=== PATIENT | male | born 1950 | race Caucasian/White ===

== ENCOUNTER 2020-06-14 10:03 | Emergency (ER) | payer MEDICARE, OTHER ==
[2020-06-14 12:59] LABS: HEMOGLOBIN 16.3 gm/dl (14.0-17.5); RED BLOOD COUNT 5.44 M/UL (4.20-5.50); WHITE BLOOD COUNT 6.7 K/UL (4.5-11.0)
[2020-06-14 13:31] LABS: BUN/CREATININE RATIO 14 (0-10)
[2020-06-14] MEDS ORDERED: TESSALON PERLE100 MG PO (15:30)
[2020-06-14] MEDS ORDERED: ZOFRAN ODT 4 MG4 MG PO (15:30)
[2020-06-14] MEDS ORDERED: CYCLOBENZAPRINE5 MG PO (15:30)
== END 2020-06-14 15:58 | disposition home or self-care (01) ==
LOC: ER1 10:03
PROVIDERS: Emergency Medicine
DX: J12.9 Viral pneumonia, unspecified (principal); I10 Essential (primary) hypertension; Z86.16 Personal history of COVID-19
CPT/HCPCS: 71045; 80053; 82550; 82553; 83690; 83735; 83874; 84484; 85025; 93005; 96374; 99283; J2405